=== PATIENT | male | born 1955 | race Caucasian/White ===

== ENCOUNTER → 2023-10-02 | Outpatient (CLI) | payer MEDICARE, OTHER ==
[~2023-10-02] MED LIST: ALLO300 PO; ATEN25 PO; B-12250 MCG; CHOL10002 PO; CIPR500 PO; DOCU100 PO; Doxazosin Mesyla8 MG PO; FEBU40TA PO; FINA5 PO; FISH1000 PO; GABA300 PO; HYDR1TAB94 PO; LOSARTAN POTAS100 MG PO; PIRO20 PO; TAMS.4ER; VITAMIN B-12
== END | disposition home or self-care (01) ==
LOC: LAB SHORT 14:55 → LAB 14:55
DX: R82.998 Other abnormal findings in urine (principal)
CPT/HCPCS: 87086

== ENCOUNTER 2024-06-17 09:30 | Day surgery (SDC) | payer MEDICARE, OTHER ==
[~2024-06-17] VITALS: Ht 182.9 cm; Wt 110.0 kg
[~2024-06-17 09:30] MED LIST changes: +Lactated Ringer's 1,000 ML IV ONE
[2024-06-17] MEDS ORDERED: AMLO5 (10:01)
[2024-06-17] MEDS ORDERED: Crestor40 MG (10:01)
[2024-06-17] MEDS ORDERED: FARXIGA10 MG (10:01)
[2024-06-17] MEDS ORDERED: propofoL 100 ML IV ONE (10:24)
[2024-06-17] MEDS ORDERED: Lactated Ringer's 1,000 ML IV ONE (10:27)
[2024-06-17] MEDS ORDERED: propofoL 50 ML IV ONE (11:10)
[2024-06-17 12:02] VITALS: BP 106/69
== END 2024-06-17 11:52 | disposition home or self-care (01) ==
LOC: ORSCSDS 09:30
PROVIDERS: Internal Medicine Gastroenterology
PROC: 0DBP8ZX Excision of Rectum, Via Natural or Artificial Opening Endoscopic, Diagnostic (ICD-10-PCS; principal; 2024-06-17 11:45)
PROC: 0DBM8ZX Excision of Descending Colon, Via Natural or Artificial Opening Endoscopic, Diagnostic (ICD-10-PCS; principal; 2024-06-17 11:45)
PROC: 0DBN8ZX Excision of Sigmoid Colon, Via Natural or Artificial Opening Endoscopic, Diagnostic (ICD-10-PCS; principal; 2024-06-17 11:45)
PROC: 0DBK8ZX Excision of Ascending Colon, Via Natural or Artificial Opening Endoscopic, Diagnostic (ICD-10-PCS; principal; 2024-06-17 11:45)
PROC: 0DBL8ZX Excision of Transverse Colon, Via Natural or Artificial Opening Endoscopic, Diagnostic (ICD-10-PCS; principal; 2024-06-17 11:45)
DX: Z12.11 Encounter for screening for malignant neoplasm of colon (principal); D12.2 Benign neoplasm of ascending colon; Z86.0101 Personal history of adenomatous and serrated colon polyps; K51.40 Inflammatory polyps of colon without complications; D12.4 Benign neoplasm of descending colon; D12.3 Benign neoplasm of transverse colon; K63.5 Polyp of colon; K62.1 Rectal polyp; D12.5 Benign neoplasm of sigmoid colon; K64.8 Other hemorrhoids; K64.4 Residual hemorrhoidal skin tags; I12.9 Hypertensive chronic kidney disease with stage 1 through stage 4 chronic kidney disease, or unspecified chronic kidney disease; R73.03 Prediabetes; N18.31 Chronic kidney disease, stage 3a; Z79.84 Long term (current) use of oral hypoglycemic drugs; Z79.899 Other long term (current) drug therapy
CPT/HCPCS: 88305; J2704; J7120

== ENCOUNTER 2024-12-10 17:01 | Inpatient (IN) | payer MEDICARE, OTHER ==
[~2024-12-10] VITALS: Ht 182.9 cm; Wt 98.4 kg
[~2024-12-10 17:01] MED LIST changes: -Acetaminophen650 M1 PO; -CIPR250 PO; -Crestor40 MG PO; -LOSA50 PO; -VISBIOME 112.51 EACH PO
[2024-12-10 21:53] LABS: BASOPHILS ABSOLUTE AUTO 0.03 K/mm3 (0.00-0.23); BASOPHILS PERCENT AUTO 0 % (0-2); EOSINOPHILS ABSOLUTE AUTO 0.00 K/mm3 (0.00-0.68); EOSINOPHILS PERCENT AUTO 0 % (0-6); Hematocrit 43.7 % (37.0-53.0); Hemoglobin 14.6 g/dL (13.5-17.5); IMMATURE GRAN ABSOLUTE AUTO 0.26 K/mm3 (0.00-0.10); IMMATURE GRAN PERCENT AUTO 1 % (0-1); LYMPHOCYTES ABSOLUTE AUTO 0.94 K/mm3 (0.84-5.20); LYMPHOCYTES PERCENT AUTO 4 % (21-46); MONOCYTES ABSOLUTE AUTO 2.18 K/mm3 (0.16-1.47); MONOCYTES PERCENT AUTO 9 % (4-13); Mean Corpuscular HGB Conc 33.4 g/dL (31.5-36.5); Mean Corpuscular Volume 92 fL (80-100); NEUTROPHILS ABSOLUTE AUTO 21.60 K/mm3 (1.96-9.15); NEUTROPHILS PERCENT AUTO 86 % (41-73); NRBC ABSOLUTE 0.00 K/mm3 (0.00-0.02); NRBC Auto 0.0 /100 WBC (0.0-0.2); Platelet Count 143 K/mm3 (150-400); RDW Coefficient Variation 13.0 % (11.7-14.2); RDW Standard Deviation 43.3 fL (35.1-46.3)
[2024-12-10 22:02] LABS: Magnesium, Blood 1.9 mg/dL (1.6-2.4); Phosphorus, Blood 3.1 mg/dL (2.5-4.9)
[2024-12-10 22:11] LABS: Prothrombin Time Results 12.3 Sec (9.7-11.5)
[2024-12-11] MEDS ORDERED: Ondansetron HCl 2 MG / ML 2ML Vial IV PRN (00:50)
[2024-12-11] MEDS ORDERED: FLU VACC TS2025(65UP)/MF59C/PF 45 MCG/0.5 ML SYRINGE IM SCH (00:50)
[2024-12-11] MEDS ORDERED: CefTRIAXone Sodium 1,000 MG in NS 100 ML IV SCH ×2 (01:40→01:41)
[2024-12-11] MEDS ORDERED: Crestor40 MG (01:43)
[2024-12-11] MEDS ORDERED: Crestor40 MG PO (01:43)
[2024-12-11 02:33] VITALS: BP 156/87
[2024-12-11] MEDS ORDERED: Lidocaine 2% Jelly Uro-Jet UR ONE (03:15)
--- NOTE | 2024-12-11 05:28 | NUR ---
SHIFT SUMMARY PT WAS ADMITTED FROM ER TO ROOM 331 FOR UTI AND POSSIBLE BLADDER MASS. PT WAS FOUND INCONT OF LOOSE STOOL UPON ARRIVAL TO UNIT. PT WITH URINARY URGENCY AND FREQUENCY- VOIDING VERY SMALL AMOUNTS EVERY 10 MINUTES AND INCONT OF SOME URINE. BLADDER SCAN FOR 290 ML. ORDER ON THE CHART STATED TO STRAIGHT CATH FOR SCAN >400, BUT DR NOTIFIED OF URINARY SYMPTOMS AND ORDER RECEIVED TO PLACE PARTIDA USING URO-JET. 18F COUDE CATH PLACED WITHOUT DIFFICULTY AND IS DRAINING ANGUS URINE. PT ABLE TO REST AFTER PARTIDA PLACED AND HAS BEEN SLEEPING INTERMITTENTLY.
[2024-12-11 06:32] LABS: BASOPHILS ABSOLUTE AUTO 0.03 K/mm3 (0.00-0.23); BASOPHILS PERCENT AUTO 0 % (0-2); EOSINOPHILS ABSOLUTE AUTO 0.01 K/mm3 (0.00-0.68); EOSINOPHILS PERCENT AUTO 0 % (0-6); Hematocrit 39.5 % (37.0-53.0); Hemoglobin 13.7 g/dL (13.5-17.5); IMMATURE GRAN ABSOLUTE AUTO 0.09 K/mm3 (0.00-0.10); IMMATURE GRAN PERCENT AUTO 1 % (0-1); LYMPHOCYTES ABSOLUTE AUTO 1.33 K/mm3 (0.84-5.20); LYMPHOCYTES PERCENT AUTO 7 % (21-46); MONOCYTES ABSOLUTE AUTO 1.50 K/mm3 (0.16-1.47); MONOCYTES PERCENT AUTO 8 % (4-13); Mean Corpuscular HGB Conc 34.7 g/dL (31.5-36.5); Mean Corpuscular Volume 89 fL (80-100); NEUTROPHILS ABSOLUTE AUTO 15.33 K/mm3 (1.96-9.15); NEUTROPHILS PERCENT AUTO 84 % (41-73); NRBC ABSOLUTE 0.00 K/mm3 (0.00-0.02); NRBC Auto 0.0 /100 WBC (0.0-0.2); Platelet Count 124 K/mm3 (150-400); RDW Coefficient Variation 12.8 % (11.7-14.2); RDW Standard Deviation 42.5 fL (35.1-46.3)
[2024-12-11 07:00] LABS: Alanine Aminotransfer (ALT/SGP 29.0 U/L (12-78); Albumin, Blood 2.8 g/dL (3.4-5.0); Albumin/Globulin Ratio 0.8 (0.8-1.8); Anion Gap 8.0 mmol/L (3-11); Aspartate Aminotrans (AST/SGOT 34.0 U/L (12-37); Bilirubin, Total 1.3 mg/dL (0.1-1.0); Blood Urea Nitrogen 24.0 mg/dL (8-24); CO2, Blood 26.0 mmol/L (21-32); Calcium, Blood 8.5 mg/dL (8.5-10.1); Chloride, Blood 106.0 mmol/L (98-108); Creatinine, Blood 1.47 mg/dL (0.60-1.20); Globulin, Blood 3.3 g/dL (2.2-4.0); Glucose, Blood 110.0 mg/dL (70-99); Magnesium, Blood 2.1 mg/dL (1.6-2.4); Potassium, Blood 3.6 mmol/L (3.5-5.5); Sodium, Blood 136.0 mmol/L (136-145); Total Protein, Blood 6.1 g/dL (6.4-8.2)
[2024-12-11 07:37] VITALS: BP 127/74
[2024-12-11] MEDS ORDERED: Lactobacil 2-S.Thermo-Bifido 1 1 Cap PO SCH (09:00)
[2024-12-11 14:44] VITALS: BP 121/69
--- NOTE | 2024-12-11 18:23 | NUR ---
END OF SHIFT. PATIENT RESTING IN BED MOST OF TODAY. SOME ABD PAIN AND DISCOMFORT. PASSED BLOOD CLOT IN CATH, URINE CLEARING UP NOW. FAMILY IN TO VISIT. PATIENT IS A&OX4, HAD SOME N/V AT DINNER TIME, WANTED TO KEEP TRAY, MEDICATED PER EMAR FOR N/V. SBA TO BATHROOM. PLAN FOR OUTPATIENT FOLLOW UP, KEEP CATH X7DAYS. PATIENT HAS HX OF 2 TURPS.
[2024-12-11 19:21] VITALS: BP 118/68
[2024-12-11] MEDS ORDERED: NS 250 ML IV PRN (22:55)
[2024-12-12 04:23] VITALS: BP 134/75
[2024-12-12 05:44] LABS: BASOPHILS ABSOLUTE AUTO 0.04 K/mm3 (0.00-0.23); BASOPHILS PERCENT AUTO 0 % (0-2); EOSINOPHILS ABSOLUTE AUTO 0.04 K/mm3 (0.00-0.68); EOSINOPHILS PERCENT AUTO 0 % (0-6); Hematocrit 40.3 % (37.0-53.0); Hemoglobin 13.4 g/dL (13.5-17.5); IMMATURE GRAN ABSOLUTE AUTO 0.07 K/mm3 (0.00-0.10); IMMATURE GRAN PERCENT AUTO 1 % (0-1); LYMPHOCYTES ABSOLUTE AUTO 1.18 K/mm3 (0.84-5.20); LYMPHOCYTES PERCENT AUTO 9 % (21-46); MONOCYTES ABSOLUTE AUTO 1.17 K/mm3 (0.16-1.47); MONOCYTES PERCENT AUTO 8 % (4-13); Mean Corpuscular HGB Conc 33.3 g/dL (31.5-36.5); Mean Corpuscular Volume 91 fL (80-100); NEUTROPHILS ABSOLUTE AUTO 11.44 K/mm3 (1.96-9.15); NEUTROPHILS PERCENT AUTO 82 % (41-73); NRBC ABSOLUTE 0.00 K/mm3 (0.00-0.02); NRBC Auto 0.0 /100 WBC (0.0-0.2); Platelet Count 121 K/mm3 (150-400); RDW Coefficient Variation 12.7 % (11.7-14.2); RDW Standard Deviation 41.6 fL (35.1-46.3)
[2024-12-12 06:14] LABS: Anion Gap 7.0 mmol/L (3-11); Blood Urea Nitrogen 20.0 mg/dL (8-24); CO2, Blood 28.0 mmol/L (21-32); Calcium, Blood 8.4 mg/dL (8.5-10.1); Chloride, Blood 104.0 mmol/L (98-108); Creatinine, Blood 1.39 mg/dL (0.60-1.20); Glucose, Blood 101.0 mg/dL (70-99); Potassium, Blood 4.6 mmol/L (3.5-5.5); Sodium, Blood 134.0 mmol/L (136-145)
--- NOTE | 2024-12-12 06:24 | NUR ---
SHIFT SUMMARY PT'S PARTIDA DRAINING ANGUS URINE WITH SOME SEDIMENT, NO BLOOD CLOTS NOTED. PT DENIES NAUSEA, BUT STATES NO APPETITE DURING THE NIGHT. PT ONLY TOOK IN A FEW SIPS OF WATER TONIGHT. PT NEEDS ECOURAGEMENT TO TURN AND CHANGE POSITION. PT HAS BEEN WITHDRAWN WITH FLAT AFFECT. LOW GRADE TEMP THROUGH THE NIGHT, 99.3 AND 99.7. IV ANTIBIOTICS GIVEN PER ORDER. PT SLEPT LONG INTERVALS DURING THE NIGHT.
[2024-12-12 07:06] VITALS: BP 139/80
[2024-12-12] MEDS ORDERED: FEBUXOSTAT 80 MG PO SCH (09:00)
[2024-12-12] MEDS ORDERED: Doxazosin Mesylate 8 MG TAB PO SCH (09:00)
[2024-12-12 15:17] VITALS: BP 120/67
--- NOTE | 2024-12-12 17:07 | NUR ---
END OF SHIFT PATIENT HAS BEEN SBA TO BATHROOM AND SAT UP IN THE CHAIR FOR A COUPLE HOURS TODAY. CATH STILL LEAKING A LITTLE INTO ATTENDS, SOME BLOOD CLOTS PRESENT BUT DRAINING WELL. BLADDER SCAN SHOWED 2ML OF URINE IN BLADDER. PATIENT DENIES PAIN OR DISCOMFORT. INCOURAGED FLUID INTAKE, PATIENT VERBALIZED UNDERSTANDING. BM TODAY. NO OTHER CONCERNS
[2024-12-12 19:52] VITALS: BP 133/71
[2024-12-13 04:03] VITALS: BP 144/76
--- NOTE | 2024-12-13 05:39 | NUR ---
SHIFT SUMMARY PT'S PARTIDA CONTINUES TO LEAK ON OCCASION. PT DENIES BLADDER SPASMS OR PAIN. SMALL BLOOD CLOTS NOTED AT START OF SHIFT, BUT CLEARED UP BY MIDNIGHT. ADDITIONAL 10ML STERILE WATER ADDED TO PARTIDA BALLOON TO SEE IF THAT WOULD HELP LEAKING. PT TURNS SELF INDEPENDENTLY IN BED. IV ANTIBIIOTICS CONTINUE PER ORDER. PT SLEPT INTERMITTENTLY DURING THE NIGHT.
[2024-12-13 07:40] VITALS: BP 132/76
[2024-12-13 08:53] LABS: BASOPHILS ABSOLUTE AUTO 0.04 K/mm3 (0.00-0.23); BASOPHILS PERCENT AUTO 1 % (0-2); EOSINOPHILS ABSOLUTE AUTO 0.09 K/mm3 (0.00-0.68); EOSINOPHILS PERCENT AUTO 1 % (0-6); Hematocrit 39.5 % (37.0-53.0); Hemoglobin 13.7 g/dL (13.5-17.5); IMMATURE GRAN ABSOLUTE AUTO 0.05 K/mm3 (0.00-0.10); IMMATURE GRAN PERCENT AUTO 1 % (0-1); LYMPHOCYTES ABSOLUTE AUTO 1.11 K/mm3 (0.84-5.20); LYMPHOCYTES PERCENT AUTO 13 % (21-46); MONOCYTES ABSOLUTE AUTO 1.04 K/mm3 (0.16-1.47); MONOCYTES PERCENT AUTO 12 % (4-13); Mean Corpuscular HGB Conc 34.7 g/dL (31.5-36.5); Mean Corpuscular Volume 87 fL (80-100); NEUTROPHILS ABSOLUTE AUTO 6.17 K/mm3 (1.96-9.15); NEUTROPHILS PERCENT AUTO 73 % (41-73); NRBC ABSOLUTE 0.00 K/mm3 (0.00-0.02); NRBC Auto 0.0 /100 WBC (0.0-0.2); Platelet Count 143 K/mm3 (150-400); RDW Coefficient Variation 12.1 % (11.7-14.2); RDW Standard Deviation 39.1 fL (35.1-46.3)
[2024-12-13 09:27] LABS: Anion Gap 6.0 mmol/L (3-11); Blood Urea Nitrogen 18.0 mg/dL (8-24); CO2, Blood 29.0 mmol/L (21-32); Calcium, Blood 8.5 mg/dL (8.5-10.1); Chloride, Blood 102.0 mmol/L (98-108); Creatinine, Blood 1.36 mg/dL (0.60-1.20); Glucose, Blood 113.0 mg/dL (70-99); Potassium, Blood 3.5 mmol/L (3.5-5.5); Sodium, Blood 133.0 mmol/L (136-145)
[2024-12-13] MEDS ORDERED: Acetaminophen650 M1 PO (12:58)
[2024-12-13] MEDS ORDERED: LOSA50 PO (12:58)
[2024-12-13] MEDS ORDERED: CIPR250 PO (12:59)
[2024-12-13] MEDS ORDERED: VISBIOME 112.51 EACH PO (12:59)
--- NOTE | 2024-12-13 14:38 | NUR ---
PT HAS BEEN DISCHARGED TO HOME, PIV REMOVED INTACT, WENT OVER DISCHARGE INSTRUCTIONS WITH HIM, HE VERBALIZED UNDERSTANDING, NEW MEDS FAXED TO [facility], LEFT WITH ALL BELONGINGS VIA WHEELCHAIR WITH LOWERATOR OPERATOR AND FAMILY IN ATTENDENCE.
== END 2024-12-13 14:38 | disposition home or self-care (01) | DRG 872 ==
LOC: ER 17:01 → MEDS 12-11 00:46
PROVIDERS: Emergency Medicine; Internal Medicine; Student in an Organized Health Care Education/Training Program; ADMIT Student in an Organized Health Care Education/Training Program
PROC: 3E03329 Introduction of Other Anti-infective into Peripheral Vein, Percutaneous Approach (ICD-10-PCS; principal; 2024-12-11)
PROC: 0T9B70Z Drainage of Bladder with Drainage Device, Via Natural or Artificial Opening (ICD-10-PCS; 2024-12-11)
DX: A41.51 Sepsis due to Escherichia coli [E. coli] (principal); N39.0 Urinary tract infection, site not specified; N17.9 Acute kidney failure, unspecified; E87.20 Acidosis, unspecified; R65.20 Severe sepsis without septic shock; N40.1 Benign prostatic hyperplasia with lower urinary tract symptoms; R33.8 Other retention of urine; E78.5 Hyperlipidemia, unspecified; I12.9 Hypertensive chronic kidney disease with stage 1 through stage 4 chronic kidney disease, or unspecified chronic kidney disease; N18.31 Chronic kidney disease, stage 3a; M10.9 Gout, unspecified; E80.6 Other disorders of bilirubin metabolism; R73.9 Hyperglycemia, unspecified; Z96.642 Presence of left artificial hip joint; Z79.899 Other long term (current) drug therapy; Z87.442 Personal history of urinary calculi; Z98.890 Other specified postprocedural states; Z88.2 Allergy status to sulfonamides
CPT/HCPCS: 36415; 51798; 74177; 80048; 80053; 83036; 83605; 83735; 84100; 84484; 85025; 85610; 85730; 86850; 86900; 86901; 87040; 87077; 87086; 87186; 93005; 93010; 96360; 99285-25; A9270; J0696; J2405; J7050; J7120; Q9967

== ENCOUNTER → 2024-12-10 | Outpatient (CLI) | payer MEDICARE, OTHER ==
[~2024-12-10] MED LIST changes: +AMLO5 PO; +Acetaminophen650 M1 PO; +CIPR250 PO; +Crestor40 MG; +Crestor40 MG PO; +FARXIGA10 MG PO; +LOSA50 PO; -Lactated Ringer's 1,000 ML IV ONE; +VISBIOME 112.51 EACH PO
[2024-12-10 15:46] LABS: Hematocrit 44.8 % (37.0-53.0); Hemoglobin 15.3 g/dL (13.5-17.5); Mean Corpuscular HGB Conc 34.2 g/dL (31.5-36.5); Mean Corpuscular Volume 89 fL (80-100); NRBC ABSOLUTE 0.00 K/mm3 (0.00-0.02); NRBC Auto 0.0 /100 WBC (0.0-0.2); Platelet Count 145 K/mm3 (150-400); RDW Coefficient Variation 13.1 % (11.7-14.2); RDW Standard Deviation 42.5 fL (35.1-46.3)
[2024-12-10 16:01] LABS: Alanine Aminotransfer (ALT/SGP 39.0 U/L (12-78); Albumin, Blood 3.6 g/dL (3.4-5.0); Albumin/Globulin Ratio 0.9 (0.8-1.8); Anion Gap 16.0 mmol/L (3-11); Aspartate Aminotrans (AST/SGOT 31.0 U/L (12-37); Bilirubin, Total 2.3 mg/dL (0.1-1.0); Blood Urea Nitrogen 23.0 mg/dL (8-24); CO2, Blood 25.0 mmol/L (21-32); Calcium, Blood 8.9 mg/dL (8.5-10.1); Chloride, Blood 102.0 mmol/L (98-108); Creatinine, Blood 2.06 mg/dL (0.60-1.20); Globulin, Blood 4.0 g/dL (2.2-4.0); Glucose, Blood 161.0 mg/dL (70-99); Potassium, Blood 4.0 mmol/L (3.5-5.5); Sodium, Blood 139.0 mmol/L (136-145); Total Protein, Blood 7.6 g/dL (6.4-8.2)
[2024-12-10 16:12] LABS: BAND PERCENT MAN 18 % (0-8); LYMPHOCYTES PERCENT MAN 1 % (21-46); NEUTROPHILS ABSOLUTE MAN 22.67 K/mm3 (1.96-9.15); SEG NEUTROPHILS PERCENT MAN 73 % (41-73)
[2024-12-10 16:13] LABS: BASOPHILS ABSOLUTE MAN 0.24 K/mm3 (0.00-0.23); BASOPHILS PERCENT MAN 1 % (0-2); MONOCYTES ABSOLUTE MAN 1.74 K/mm3 (0.16-1.47); MONOCYTES PERCENT MAN 7 % (4-13)
[2024-12-10 16:15] LABS: LYMPHOCYTES ABSOLUTE MAN 0.24 K/mm3 (0.84-5.20)
== END | disposition home or self-care (01) ==
LOC: LAB SHORT 15:41 → LAB 15:41
PROVIDERS: Physician Assistant
DX: N39.0 Urinary tract infection, site not specified (principal); R73.9 Hyperglycemia, unspecified
CPT/HCPCS: 80053; 83036; 85025; 87077; 87086; 87186

== ENCOUNTER 2025-01-14 10:32 | Inpatient (IN) | payer MEDICARE, OTHER ==
[~2025-01-14] VITALS: Ht 182.9 cm; Wt 105.7 kg
[~2025-01-14 10:32] MED LIST changes: +Acetaminophen650 M1 PO; -CHOL10002 PO; +CIPR250 PO; +Crestor40 MG PO; +LOSA50 PO; +ROSUVASTATIN CAL5 MG PO; +VISBIOME 112.51 EACH PO; +VITAMIN D5000 UNIT PO
[2025-01-14 11:30] LABS: BASOPHILS ABSOLUTE AUTO 0.04 K/mm3 (0.00-0.23); BASOPHILS PERCENT AUTO 0 % (0-2); EOSINOPHILS ABSOLUTE AUTO 0.09 K/mm3 (0.00-0.68); EOSINOPHILS PERCENT AUTO 1 % (0-6); Hematocrit 37.1 % (37.0-53.0); Hemoglobin 12.4 g/dL (13.5-17.5); IMMATURE GRAN ABSOLUTE AUTO 0.10 K/mm3 (0.00-0.10); IMMATURE GRAN PERCENT AUTO 1 % (0-1); LYMPHOCYTES ABSOLUTE AUTO 0.85 K/mm3 (0.84-5.20); LYMPHOCYTES PERCENT AUTO 7 % (21-46); MONOCYTES ABSOLUTE AUTO 1.27 K/mm3 (0.16-1.47); MONOCYTES PERCENT AUTO 10 % (4-13); Mean Corpuscular HGB Conc 33.4 g/dL (31.5-36.5); Mean Corpuscular Volume 88 fL (80-100); NEUTROPHILS ABSOLUTE AUTO 10.43 K/mm3 (1.96-9.15); NEUTROPHILS PERCENT AUTO 82 % (41-73); NRBC ABSOLUTE 0.00 K/mm3 (0.00-0.02); NRBC Auto 0.0 /100 WBC (0.0-0.2); Platelet Count 290 K/mm3 (150-400); RDW Coefficient Variation 12.6 % (11.7-14.2); RDW Standard Deviation 41.2 fL (35.1-46.3)
[2025-01-14 11:59] LABS: Alanine Aminotransfer (ALT/SGP 52.0 U/L (12-78); Albumin, Blood 2.5 g/dL (3.4-5.0); Albumin/Globulin Ratio 0.5 (0.8-1.8); Anion Gap 8.0 mmol/L (3-11); Aspartate Aminotrans (AST/SGOT 41.0 U/L (12-37); Bilirubin, Total 0.8 mg/dL (0.1-1.0); Blood Urea Nitrogen 25.0 mg/dL (8-24); CO2, Blood 25.0 mmol/L (21-32); Calcium, Blood 8.6 mg/dL (8.5-10.1); Chloride, Blood 103.0 mmol/L (98-108); Creatinine, Blood 2.57 mg/dL (0.60-1.20); Globulin, Blood 5.1 g/dL (2.2-4.0); Glucose, Blood 121.0 mg/dL (70-99); Potassium, Blood 4.0 mmol/L (3.5-5.5); Sodium, Blood 132.0 mmol/L (136-145); Total Protein, Blood 7.6 g/dL (6.4-8.2)
[2025-01-14] MEDS ORDERED: CefTRIAXone Sodium 1,000 MG in NS 100 ML IV ONE (12:55)
[2025-01-14] MEDS ORDERED: NS 1,000 ML IV SCH ×4 (12:55→16:30)
[2025-01-14 13:19] LABS: Source, Urine Foley catheter
[2025-01-14 13:22] LABS: Bilirubin, Urine Neg (Neg); Color, Urine Yellow (P-Yellow); Glucose Qualitative, Urine 4+ (Neg); Ketones, Urine Neg (Neg); Leukocyte Esterase, Urine 3+ (Neg); Protein, Urine 4+ (Neg); Specific Gravity, Urine 1.020 (1.003-1.022); Urobilinogen, Urine NORM (Normal)
[2025-01-14 13:47] LABS: Red Blood Cells, Urine 25-50 /hpf (0-2); White Blood Cells, Urine TNTC /hpf (0-5)
[2025-01-14 13:49] LABS: Yeast/Fungi Urine Many /hpf
[2025-01-14] MEDS ORDERED: FLU VACC TS2025(65UP)/MF59C/PF 45 MCG/0.5 ML SYRINGE IM SCH (15:45)
[2025-01-14] MEDS ORDERED: Ondansetron HCl 2 MG / ML 2ML Vial IV PRN (15:45)
--- NOTE | 2025-01-14 17:20 | NUR ---
PT TRANSFERED TO ROOM 357 FROM ER. PT IS A/OX4. TIM. JAQUAN ESQUIVEL AND DRAINING CLOUDY, ANGUS COLORED URINE TO GRAVITY. NS RUNNING @ 200 ML/HR.
[2025-01-14 17:25] VITALS: BP 153/71
[2025-01-14 19:26] VITALS: BP 137/67
[2025-01-14] MEDS ORDERED: Lactobacil 2-S.Thermo-Bifido 1 1 Cap PO SCH (21:00)
[2025-01-14] MEDS ORDERED: Miconazole Nitrate 2% 85 GM PWD TOP PRN ×2 (21:00→21:15)
[2025-01-14] MEDS ORDERED: Doxazosin Mesylate 8 MG TAB PO SCH (21:00)
[2025-01-14 23:39] VITALS: BP 121/77
[2025-01-15] VITALS (8 sets, daily range): BP systolic 108–139; BP diastolic 66–72
[2025-01-15 04:51] LABS: BASOPHILS ABSOLUTE AUTO 0.04 K/mm3 (0.00-0.23); BASOPHILS PERCENT AUTO 0 % (0-2); EOSINOPHILS ABSOLUTE AUTO 0.19 K/mm3 (0.00-0.68); EOSINOPHILS PERCENT AUTO 2 % (0-6); Hematocrit 34.3 % (37.0-53.0); Hemoglobin 11.3 g/dL (13.5-17.5); IMMATURE GRAN ABSOLUTE AUTO 0.08 K/mm3 (0.00-0.10); IMMATURE GRAN PERCENT AUTO 1 % (0-1); LYMPHOCYTES ABSOLUTE AUTO 0.82 K/mm3 (0.84-5.20); LYMPHOCYTES PERCENT AUTO 8 % (21-46); MONOCYTES ABSOLUTE AUTO 1.13 K/mm3 (0.16-1.47); MONOCYTES PERCENT AUTO 11 % (4-13); Mean Corpuscular HGB Conc 32.9 g/dL (31.5-36.5); Mean Corpuscular Volume 88 fL (80-100); NEUTROPHILS ABSOLUTE AUTO 7.78 K/mm3 (1.96-9.15); NEUTROPHILS PERCENT AUTO 77 % (41-73); NRBC ABSOLUTE 0.00 K/mm3 (0.00-0.02); NRBC Auto 0.0 /100 WBC (0.0-0.2); Platelet Count 255 K/mm3 (150-400); RDW Coefficient Variation 12.8 % (11.7-14.2); RDW Standard Deviation 41.0 fL (35.1-46.3)
[2025-01-15 05:17] LABS: Anion Gap 9.0 mmol/L (3-11); Blood Urea Nitrogen 26.0 mg/dL (8-24); CO2, Blood 21.0 mmol/L (21-32); Calcium, Blood 8.3 mg/dL (8.5-10.1); Chloride, Blood 106.0 mmol/L (98-108); Creatinine, Blood 2.17 mg/dL (0.60-1.20); Glucose, Blood 105.0 mg/dL (70-99); Potassium, Blood 3.9 mmol/L (3.5-5.5); Sodium, Blood 132.0 mmol/L (136-145)
--- NOTE | 2025-01-15 06:19 | NUR ---
NOC SHIFT SUMMARY PT C/O DRY, HACKING COUGH T/O SHIFT. THIS RN CALLED NIGHT HOSPITALIST AND RECEIVED ORDER FOR TESSALON. PT MEDICATED PER EMAR. NS CONT TO INFUSE PER ORDER. NO OTHER ACUTE CHANGES. CALL LIGHT WITHIN REACH AND PT ABLE TO MAKE NEEDS KNOWN.
[2025-01-15] MEDS ORDERED: Enoxaparin 40 MG/0.4 ML SYR SC SCH (09:00)
[2025-01-15] MEDS ORDERED: NS 1,000 ML IV SCH (13:00)
--- NOTE | 2025-01-15 16:46 | NUR ---
CALLED DR BOOTHE- THE PT HAD A TEMP OF 100.0. THIS RBN HAS NOT GIVEN ABX TODAY, REVIEW SHOWS NO ORDER FOR ABX. CALLED DR BOOTHE. SHE IS PLACING AN ORDER FOR IV CEFTRIAXONE NOW.
--- NOTE | 2025-01-15 16:48 | NUR ---
SHIFT SUMMARY- PT ALERT AND ORIENTED 1PA TO THE BATHROOM WHEN NEEDED. HE HAS A PARTIDA CATH IN PLACE. KIDNEY FUNCTION IS DOWN SO IVF WAS CHANGED TO 100ML/HR FOR 2000ML. PT IS GOING TO RECIEVE THE SECOND DOSE OF IV ROCEPHIN TODAY. PT HAS HAD A FEVER 100.0 THIS EVENING HE HAS BEEN DIAPHORETIC OFF AND ON WELL SHAKEY OFF AND ON. THE PT HAD ONE BOUT OF EMESIS A FULL LINNEN CHANGE WORTH (UNMEASURED) SHORTLY AFTER A COUGHING FIT. DR BOOTHE IS AWARE AND CHEST XR WAS COMPLETED TO R/O PNEUMONIA A CAUSE FOR THE COUGH. PT TEMP IS ELEVATED TO 100.0 ON EVENING VITALS. AMLODIPINE DC'D AND FIRST DOSE OIF COREG WILL BE GIVEN THIS EVENING.PT REMAINS ON ROOM AIR AT THIS TIME. WILL PASS ON TO NIGHT RN IN BEDSIDE REPORT. PT IN BED, CALL LIGHT IN REACH NO S&S OF DISTRESS NOTED.
[2025-01-15] MEDS ORDERED: CefTRIAXone Sodium 1,000 MG in NS 100 ML IV SCH (17:00)
[2025-01-16 03:24] VITALS: BP 135/73
[2025-01-16 05:08] LABS: Anion Gap 9.0 mmol/L (3-11); Blood Urea Nitrogen 23.0 mg/dL (8-24); CO2, Blood 20.0 mmol/L (21-32); Calcium, Blood 8.8 mg/dL (8.5-10.1); Chloride, Blood 110.0 mmol/L (98-108); Creatinine, Blood 1.99 mg/dL (0.60-1.20); Glucose, Blood 98.0 mg/dL (70-99); Potassium, Blood 4.7 mmol/L (3.5-5.5); Sodium, Blood 134.0 mmol/L (136-145)
[2025-01-16 05:19] LABS: BASOPHILS ABSOLUTE AUTO 0.04 K/mm3 (0.00-0.23); BASOPHILS PERCENT AUTO 1 % (0-2); EOSINOPHILS ABSOLUTE AUTO 0.18 K/mm3 (0.00-0.68); EOSINOPHILS PERCENT AUTO 2 % (0-6); Hematocrit 37.8 % (37.0-53.0); Hemoglobin 12.5 g/dL (13.5-17.5); IMMATURE GRAN ABSOLUTE AUTO 0.07 K/mm3 (0.00-0.10); IMMATURE GRAN PERCENT AUTO 1 % (0-1); LYMPHOCYTES ABSOLUTE AUTO 0.94 K/mm3 (0.84-5.20); LYMPHOCYTES PERCENT AUTO 11 % (21-46); MONOCYTES ABSOLUTE AUTO 1.08 K/mm3 (0.16-1.47); MONOCYTES PERCENT AUTO 13 % (4-13); Mean Corpuscular HGB Conc 33.1 g/dL (31.5-36.5); Mean Corpuscular Volume 90 fL (80-100); NEUTROPHILS ABSOLUTE AUTO 6.36 K/mm3 (1.96-9.15); NEUTROPHILS PERCENT AUTO 73 % (41-73); NRBC ABSOLUTE 0.02 K/mm3 (0.00-0.02); NRBC Auto 0.2 /100 WBC (0.0-0.2); Platelet Count 248 K/mm3 (150-400); RDW Coefficient Variation 12.9 % (11.7-14.2); RDW Standard Deviation 42.1 fL (35.1-46.3)
[2025-01-16 07:07] VITALS: BP 135/72
[2025-01-16] MEDS ORDERED: Furosemide 10 MG / ML 2ML Vial IV ONE (09:00)
[2025-01-16 13:45] LABS: Anion Gap 4.0 mmol/L (3-11); Blood Urea Nitrogen 25.0 mg/dL (8-24); CO2, Blood 28.0 mmol/L (21-32); Calcium, Blood 8.5 mg/dL (8.5-10.1); Chloride, Blood 105.0 mmol/L (98-108); Creatinine, Blood 2.04 mg/dL (0.60-1.20); Glucose, Blood 116.0 mg/dL (70-99); Potassium, Blood 4.3 mmol/L (3.5-5.5); Sodium, Blood 133.0 mmol/L (136-145)
[2025-01-16 15:13] VITALS: BP 130/76
[2025-01-16 17:16] VITALS: BP 142/83
--- NOTE | 2025-01-16 17:59 | NUR ---
NO ACUTE CHANGES, TO CT NOW, DR GENAO ROUNDED, OXYBUTIN PRN ORDERED, PATIENT REPORTS NO RELIEF FROM OXYBUTIN, NO TEMP THROUGH OUT THE DAY, CALL LIGHT WITH IN REACH
[2025-01-16 20:04] VITALS: BP 132/72
[2025-01-17] VITALS (7 sets, daily range): BP systolic 122–140; BP diastolic 70–81
[2025-01-17 05:21] LABS: BASOPHILS ABSOLUTE AUTO 0.04 K/mm3 (0.00-0.23); BASOPHILS PERCENT AUTO 1 % (0-2); EOSINOPHILS ABSOLUTE AUTO 0.20 K/mm3 (0.00-0.68); EOSINOPHILS PERCENT AUTO 2 % (0-6); Hematocrit 38.6 % (37.0-53.0); Hemoglobin 12.8 g/dL (13.5-17.5); IMMATURE GRAN ABSOLUTE AUTO 0.05 K/mm3 (0.00-0.10); IMMATURE GRAN PERCENT AUTO 1 % (0-1); LYMPHOCYTES ABSOLUTE AUTO 1.24 K/mm3 (0.84-5.20); LYMPHOCYTES PERCENT AUTO 15 % (21-46); MONOCYTES ABSOLUTE AUTO 1.12 K/mm3 (0.16-1.47); MONOCYTES PERCENT AUTO 13 % (4-13); Mean Corpuscular HGB Conc 33.2 g/dL (31.5-36.5); Mean Corpuscular Volume 89 fL (80-100); NEUTROPHILS ABSOLUTE AUTO 5.93 K/mm3 (1.96-9.15); NEUTROPHILS PERCENT AUTO 69 % (41-73); NRBC ABSOLUTE 0.00 K/mm3 (0.00-0.02); NRBC Auto 0.0 /100 WBC (0.0-0.2); Platelet Count 277 K/mm3 (150-400); RDW Coefficient Variation 12.7 % (11.7-14.2); RDW Standard Deviation 41.4 fL (35.1-46.3)
[2025-01-17 05:46] LABS: Alanine Aminotransfer (ALT/SGP 44.0 U/L (12-78); Albumin, Blood 2.4 g/dL (3.4-5.0); Albumin/Globulin Ratio 0.5 (0.8-1.8); Anion Gap 9.0 mmol/L (3-11); Aspartate Aminotrans (AST/SGOT 31.0 U/L (12-37); Bilirubin, Total 0.5 mg/dL (0.1-1.0); Blood Urea Nitrogen 25.0 mg/dL (8-24); CO2, Blood 24.0 mmol/L (21-32); Calcium, Blood 8.6 mg/dL (8.5-10.1); Chloride, Blood 106.0 mmol/L (98-108); Creatinine, Blood 1.88 mg/dL (0.60-1.20); Globulin, Blood 5.0 g/dL (2.2-4.0); Glucose, Blood 96.0 mg/dL (70-99); Potassium, Blood 4.1 mmol/L (3.5-5.5); Sodium, Blood 135.0 mmol/L (136-145); Total Protein, Blood 7.4 g/dL (6.4-8.2)
[2025-01-17] MEDS ORDERED: LOSARTAN POTAS100 M1 PO (14:22)
--- NOTE | 2025-01-17 19:40 | NUR ---
SHIFT SUMMARY PT A&OX4. PT ADMITTED DUE TO ACUTE RENAL FAILURE. VSS. PT REPORTS NO PAIN/CHEST PAIN/SOB. PT ON TELE, NO TELE REPORTS NOTED. PT INDEPENDENT IN ROOM. PT HAS CHRONIC PARTIDA, PARTIDA DRAINING ADEQUATE WITH NO DEPENDENT LOOPS. PT REPORTS SOME URINE LEAKING AT CATH SITE. PT [place] AREA ESCORIATED. DR. GENAO ROUNDED ON PT THIS AM. PLAN IS SURGERY TOMORROW AFTERNOON, NPO AT MIDNIGHT. PT IN BED, BED IN LOWEST POSITION, LOCKED, CALL LIGHT IN REACH.
[2025-01-18] VITALS (16 sets, daily range): BP systolic 126–159; BP diastolic 74–92
--- NOTE | 2025-01-18 06:15 | NUR ---
Shift Summary No acute changes. Pt has Brown catheter, some leaking per report. No significant leaking noted this shift. Pt on tele, no events. He slept well t/o most of the night. No c/o of pain or nausea.
[2025-01-18 09:33] LABS: BASOPHILS ABSOLUTE AUTO 0.03 K/mm3 (0.00-0.23); BASOPHILS PERCENT AUTO 0 % (0-2); EOSINOPHILS ABSOLUTE AUTO 0.18 K/mm3 (0.00-0.68); EOSINOPHILS PERCENT AUTO 3 % (0-6); Hematocrit 37.9 % (37.0-53.0); Hemoglobin 12.5 g/dL (13.5-17.5); IMMATURE GRAN ABSOLUTE AUTO 0.03 K/mm3 (0.00-0.10); IMMATURE GRAN PERCENT AUTO 0 % (0-1); LYMPHOCYTES ABSOLUTE AUTO 1.23 K/mm3 (0.84-5.20); LYMPHOCYTES PERCENT AUTO 17 % (21-46); MONOCYTES ABSOLUTE AUTO 0.75 K/mm3 (0.16-1.47); MONOCYTES PERCENT AUTO 10 % (4-13); Mean Corpuscular HGB Conc 33.0 g/dL (31.5-36.5); Mean Corpuscular Volume 88 fL (80-100); NEUTROPHILS ABSOLUTE AUTO 4.98 K/mm3 (1.96-9.15); NEUTROPHILS PERCENT AUTO 69 % (41-73); NRBC ABSOLUTE 0.00 K/mm3 (0.00-0.02); NRBC Auto 0.0 /100 WBC (0.0-0.2); Platelet Count 273 K/mm3 (150-400); RDW Coefficient Variation 12.7 % (11.7-14.2); RDW Standard Deviation 41.0 fL (35.1-46.3)
[2025-01-18 10:06] LABS: Anion Gap 8.0 mmol/L (3-11); Blood Urea Nitrogen 28.0 mg/dL (8-24); CO2, Blood 25.0 mmol/L (21-32); Calcium, Blood 8.9 mg/dL (8.5-10.1); Chloride, Blood 105.0 mmol/L (98-108); Creatinine, Blood 1.84 mg/dL (0.60-1.20); Glucose, Blood 96.0 mg/dL (70-99); Potassium, Blood 4.5 mmol/L (3.5-5.5); Sodium, Blood 133.0 mmol/L (136-145)
[2025-01-18] MEDS ORDERED: FentaNYL Citrate 50 MCG/ML 2 ML Injection ONE (15:36)
[2025-01-18] MEDS ORDERED: Ondansetron HCl 2 MG / ML 2ML Vial ONE (15:36)
[2025-01-18] MEDS ORDERED: Dexamethasone Sod Phos 10 MG/ML 1ML VIAL ONE (15:36)
[2025-01-18] MEDS ORDERED: CeFAZolin Sodium 2,000 MG in NS 100 ML IV SCH (15:50)
--- NOTE | 2025-01-18 15:50 | NUR ---
History, Chart, Medications and Allergies reviewed before start of procedure. Lungs clear T/O to Auscultation. Patient confirms NPO status and agrees with scheduled surgery. Pre-Op teaching done. Pt verbalizes understanding.
[2025-01-18] MEDS ORDERED: Rocuronium Bromide 10 MG/ML 5ML Injection IV ONE (15:59)
[2025-01-18] MEDS ORDERED: Phenylephrine HCl 100 MCG/ML-NS 10MLSYR (1MG/10ML) ONE (15:59)
[2025-01-18] MEDS ORDERED: HYDROmorphone HCl/Pf 1MG SYR IV PRN ×2 (17:05)
[2025-01-18] MEDS ORDERED: HydrALAZINE HCl 20 MG / ML 1ML Vial IV PRN (17:05)
[2025-01-18] MEDS ORDERED: FentaNYL Citrate 50 MCG/ML 2 ML Injection IV PRN ×2 (17:05→17:10)
[2025-01-18] MEDS ORDERED: Metoclopramide HCl 5MG / ML 2ML Vial IV PRN (17:05)
[2025-01-18] MEDS ORDERED: ePHEDrine Sulfate 50 MG/ML 1ML Injection IV PRN (17:10)
--- NOTE | 2025-01-18 18:48 | NUR ---
SHIFT SUMMARY PT A&OX4, VSS, RA, SR 60-70S ON TELE, DENIES PAIN. NPO THIS MORNING FOR UROSCOPY WITH LASER AND STENT PLACEMENT THIS AFTERNOON. PT RETURNED TO UNIT AT 1800, 3L O2 TO WEAN TO RA TOLERATED. NEW PARTIDA PLACED DURING PROCEDURE NOW DRAINING RED URINE WITH SEDIMENT AND CLOTS, ORDER TO FLUSH PRN WITH 30ML SALINE PRN WITH SIGNS OF OBSTRUCTION. PT PLEASANT AND COOPERATIVE WITH CARE, CALL LIGHT IN REACH.
--- NOTE | 2025-01-18 22:18 | NUR ---
BLADDER SCAN DONE @ 2130. ON 1O ML URINE DETECTED SO PARTIDA IS DRAINING WELL. URINE IS STILL RED.
[2025-01-19 03:29] VITALS: BP 149/84
[2025-01-19 05:03] LABS: BASOPHILS ABSOLUTE AUTO 0.02 K/mm3 (0.00-0.23); BASOPHILS PERCENT AUTO 0 % (0-2); EOSINOPHILS ABSOLUTE AUTO 0.01 K/mm3 (0.00-0.68); EOSINOPHILS PERCENT AUTO 0 % (0-6); Hematocrit 39.6 % (37.0-53.0); Hemoglobin 13.4 g/dL (13.5-17.5); IMMATURE GRAN ABSOLUTE AUTO 0.07 K/mm3 (0.00-0.10); IMMATURE GRAN PERCENT AUTO 0 % (0-1); LYMPHOCYTES ABSOLUTE AUTO 0.79 K/mm3 (0.84-5.20); LYMPHOCYTES PERCENT AUTO 5 % (21-46); MONOCYTES ABSOLUTE AUTO 0.67 K/mm3 (0.16-1.47); MONOCYTES PERCENT AUTO 4 % (4-13); Mean Corpuscular HGB Conc 33.8 g/dL (31.5-36.5); Mean Corpuscular Volume 87 fL (80-100); NEUTROPHILS ABSOLUTE AUTO 15.09 K/mm3 (1.96-9.15); NEUTROPHILS PERCENT AUTO 91 % (41-73); NRBC ABSOLUTE 0.00 K/mm3 (0.00-0.02); NRBC Auto 0.0 /100 WBC (0.0-0.2); Platelet Count 303 K/mm3 (150-400); RDW Coefficient Variation 12.5 % (11.7-14.2); RDW Standard Deviation 40.0 fL (35.1-46.3)
[2025-01-19 05:45] LABS: Anion Gap 10.0 mmol/L (3-11); Blood Urea Nitrogen 31.0 mg/dL (8-24); CO2, Blood 23.0 mmol/L (21-32); Calcium, Blood 8.7 mg/dL (8.5-10.1); Chloride, Blood 104.0 mmol/L (98-108); Creatinine, Blood 1.75 mg/dL (0.60-1.20); Glucose, Blood 152.0 mg/dL (70-99); Potassium, Blood 4.8 mmol/L (3.5-5.5); Sodium, Blood 132.0 mmol/L (136-145)
--- NOTE | 2025-01-19 06:15 | NUR ---
SHIFT SUMMARY 69 YR M ADMITTED ON 01/15/25. FULL CODE. NO ACUTE CHANGES THIS SHIFT. PARTIDA WAS FLUSHED DURING SHIFT CHANGE ON 01/18/25, DUE TO LOW URINARY OUTPUT. A SMALL CLOT AND SOME SEDIMENT WERE NOTED AND PARTIDA HAS DRAINED WELL FOR THE REST OF THIS SHIFT. BLADDER SCAN WAS DONE AT APPROX 2130 REVEALING 10 ML IN THE BLADDER. PT HAD A TOTAL OF 1000 ML OUTPUT OVERNIGHT. URINE IS RED W/ SOME SEDIMENT. PT HAS HAD NO C/O PAIN OR DISCOMFORT. HE APPEARS TO HAVE RESTED COMFORTABLY THROUGHOUT THE NIGHT. PER VERTICAL CONTOUR BAND SAW OPERATOR, PT HAD 2 EPISODES OF VTAC DURING THE NIGHT. ONE WAS 11 BEATS AND THE OTHER WAS 16 BEATS. PT HAS REMAINED ASYMPTOMATIC. PT IS A&O X 4 W/ FLAT EFFECT. HE IS ABLE TO MAKE HIS NEEDS KNOWN APPROPRIATELY. BED IS IN LOW POSITION AND CALL LIGHT IN REACH.
[2025-01-19 07:52] VITALS: BP 140/81
[2025-01-19] MEDS ORDERED: C COMPLEX1000 M1 PO (09:24)
[2025-01-19] MEDS ORDERED: VITAMIN B122500 MC1 PO (09:24)
[2025-01-19] MEDS ORDERED: FARYDAK10 MG PO (09:25)
[2025-01-19] MEDS ORDERED: OXYB5 PO (09:27)
[2025-01-19] MEDS ORDERED: Tessalon200 MG PO (10:46)
[2025-01-19] MEDS ORDERED: Acetaminophen650 M1 PO (10:46)
[2025-01-19] MEDS ORDERED: CARV6.25 PO (10:47)
[2025-01-19] MEDS ORDERED: CIPR250 PO (10:47)
[2025-01-19] MEDS ORDERED: Diflucan100 MG PO (10:48)
[2025-01-19] MEDS ORDERED: VISBIOME 112.51 EACH PO (10:49)
--- NOTE | 2025-01-19 11:09 | NUR ---
DISCHARGE NOTE PT PROVIDED WITH 2 LEG BAGS AND STRAPS FOR GOING HOME. PROVIDED A NEW LARGE NIGHT BAG. CARE ONGOING.
[2025-01-19 11:33] VITALS: BP 123/69
--- NOTE | 2025-01-19 14:12 | NUR ---
DISCHARGE HOME EDUCATED PT/ ABOUT ENCOURAGING LIQUIDS. IV REMOVED PRESSURE DRESSING APPLIED. PT ESCORTED OUT VIA W/C TO AWAITING CAR. CARE ONGOING.
== END 2025-01-19 14:24 | disposition home or self-care (01) | DRG 854 ==
LOC: ER 10:32 → MEDS 10:33
PROVIDERS: Student in an Organized Health Care Education/Training Program; Urology; ADMIT Internal Medicine
PROC: 0T2BX0Z Change Drainage Device in Bladder, External Approach (ICD-10-PCS; 2025-01-14)
PROC: 0TC68ZZ Extirpation of Matter from Right Ureter, Via Natural or Artificial Opening Endoscopic (ICD-10-PCS; 2025-01-18)
PROC: BT1D1ZZ Fluoroscopy of Right Kidney, Ureter and Bladder using Low Osmolar Contrast (ICD-10-PCS; 2025-01-18)
PROC: 0T768DZ Dilation of Right Ureter with Intraluminal Device, Via Natural or Artificial Opening Endoscopic (ICD-10-PCS; principal; 2025-01-18 15:30)
DX: A41.9 Sepsis, unspecified organism (principal); B37.49 Other urogenital candidiasis; N17.9 Acute kidney failure, unspecified; N13.8 Other obstructive and reflux uropathy; N13.6 Pyonephrosis; M10.9 Gout, unspecified; R65.20 Severe sepsis without septic shock; R33.8 Other retention of urine; R05.9 Cough, unspecified; Z96.0 Presence of urogenital implants; Z96.643 Presence of artificial hip joint, bilateral; N40.0 Benign prostatic hyperplasia without lower urinary tract symptoms; N18.31 Chronic kidney disease, stage 3a; I12.9 Hypertensive chronic kidney disease with stage 1 through stage 4 chronic kidney disease, or unspecified chronic kidney disease; N40.1 Benign prostatic hyperplasia with lower urinary tract symptoms; R73.03 Prediabetes; E78.5 Hyperlipidemia, unspecified; Z90.89 Acquired absence of other organs; Z87.442 Personal history of urinary calculi; Z88.2 Allergy status to sulfonamides; Z79.899 Other long term (current) drug therapy; Z79.2 Long term (current) use of antibiotics; Z87.19 Personal history of other diseases of the digestive system; Z98.52 Vasectomy status; Z85.51 Personal history of malignant neoplasm of bladder
CPT/HCPCS: 36415; 51702; 71046; 74176; 76770; 80048; 80053; 81001; 83605; 85025; 87040; 87086; 93005; 93010; 96361; 96365; 96372; 96375; 99285-25; A9270; C1758; C1769; C2617; G0378; J0690; J0696; J1100; J1650; J1938; J2371; J2405; J2704; J3010; J7030; J7120

== ENCOUNTER 2025-01-26 06:11 | Day surgery (SDC) | payer MEDICARE, OTHER ==
[2025-01-26] VITALS (14 sets, daily range): BP systolic 112–145; BP diastolic 61–89
[~2025-01-26] VITALS: Ht 182.9 cm; Wt 100.4 kg
[~2025-01-26 06:11] MED LIST changes: +C COMPLEX1000 M1 PO; +CARV6.25 PO; +Diflucan100 MG PO; +FARYDAK10 MG PO; +LOSARTAN POTAS100 M1 PO; +OXYB5 PO; +Tessalon200 MG PO; +VITAMIN B122500 MC1 PO
[2025-01-26] MEDS ORDERED: CefTRIAXone Sodium 2,000 MG in NS 100 ML IV SCH (06:30)
--- NOTE | 2025-01-26 07:06 | NUR ---
Ambulatory in Day Surgery WITH STEADY GAIT. PT HAS CATHETER IN PLACE. SPOUSE AT BEDSIDE DURING PRE OP ADMISSION. WARM BLANKET PROVIDED. VSS. BELONGINGS PLACED UNDER GURN. GLASSES REMAIN IN PLACE IN PRE OP. TO BE PLACED IN PACU WHEN GOING BACK FOR SURGERY. Pre-Op teaching done. Pt verbalizes understanding. Patient States Post-Procedure ride home has been arranged WITH SPOUSE.
[2025-01-26] MEDS ORDERED: Midazolam HCl 1MG / ML 2ML Vial ONE (07:29)
[2025-01-26] MEDS ORDERED: ePHEDrine Sulfate 50 MG/ML 1ML Injection ONE (07:45)
[2025-01-26] MEDS ORDERED: Albuterol 2.5 MG/3 ML VIAL INH PRN (08:15)
[2025-01-26] MEDS ORDERED: FentaNYL Citrate 50 MCG/ML 2 ML Injection IV PRN ×2 (08:20)
[2025-01-26] MEDS ORDERED: HYDROmorphone HCl/Pf 1MG SYR IV PRN ×2 (08:20)
[2025-01-26] MEDS ORDERED: ePHEDrine Sulfate 50 MG/ML 1ML Injection IV PRN (08:20)
[2025-01-26] MEDS ORDERED: Ondansetron HCl 2 MG / ML 2ML Vial IV PRN (08:20)
[2025-01-26] MEDS ORDERED: FentaNYL Citrate 50 MCG/ML 2 ML Injection ONE (09:26)
[2025-01-26] MEDS ORDERED: NS 1,000 ML IV SCH (10:50)
[2025-01-26] MEDS ORDERED: FLU VACC TS2025-26(6MOS UP)/PF 45 MCG/0.5 ML SYRINGE IM SCH (10:50)
[2025-01-26] MEDS ORDERED: HYDROcodone 5-APAP 325 TAB PO PRN (10:50)
--- NOTE | 2025-01-26 11:05 | NUR ---
ARRIVAL S/P TURP. CBI IN PLACE AND URINE IS LIGHT PINK IN COLOR WITH NO BLOOD CLOTS NOTED. PT DENIES PAIN. DENIES N/V. PT HAS DECREASED SENSATION R/T SPINAL. POST OP VSS AND IN PROGRESS. PT REPORTS A SCRATCHY THROAT AND COUGH R/T PREVIOUS RECENT SURGERY. ORIENTED TO ROOM, CALL LIGHT, AND TREATMENT PLAN. CALL LIGHT WITHIN REACH.
--- NOTE | 2025-01-26 11:29 | NUR ---
KATHY NASSAR TO ASSUME CARE OF PT AT THIS TIME
--- NOTE | 2025-01-26 18:01 | NUR ---
SHIFT SUMMARY S/P TURP. CBI IN PROGRESS--CRANBERRY COLORED URINE WITH NO BLOOD CLOTS. A&O x4, VSS. TOLERATING FOOD & FLUIDS WELL. DENIES PAIN. SBA TO BRP TO HAVE A BM. USES CALL LIGHT APPROPRIATELY.
[2025-01-27 03:59] VITALS: BP 116/70
[2025-01-27 04:20] LABS: Hematocrit 33.8 % (37.0-53.0); Hemoglobin 11.3 g/dL (13.5-17.5); Mean Corpuscular HGB Conc 33.4 g/dL (31.5-36.5); Mean Corpuscular Volume 88 fL (80-100); NRBC ABSOLUTE 0.00 K/mm3 (0.00-0.02); NRBC Auto 0.0 /100 WBC (0.0-0.2); Platelet Count 251 K/mm3 (150-400); RDW Coefficient Variation 13.0 % (11.7-14.2); RDW Standard Deviation 41.1 fL (35.1-46.3)
[2025-01-27 04:44] LABS: Anion Gap 10.0 mmol/L (3-11); Blood Urea Nitrogen 26.0 mg/dL (8-24); CO2, Blood 23.0 mmol/L (21-32); Calcium, Blood 8.5 mg/dL (8.5-10.1); Chloride, Blood 107.0 mmol/L (98-108); Creatinine, Blood 1.9 mg/dL (0.60-1.20); Glucose, Blood 116.0 mg/dL (70-99); Potassium, Blood 4.1 mmol/L (3.5-5.5); Sodium, Blood 136.0 mmol/L (136-145)
--- NOTE | 2025-01-27 06:20 | NUR ---
NOC SUMMARY- PT HAS HAD CBI THROUGHOUT SHIFT. PT DENIES PAIN OR DISCOMFORT. PT PARTIDA DOES LEAK SOME AROUND INSERTION SITE. PT TOLERATING PO INTAKE. FOR NOC SHIFT PT HAD 4950 NS IRRIGATED, TOTAL OUTPUT OF 6300, WITH URINE TOTALING 1350. URINE IS PINK TINGED WITH LARGE CLOTS NOTED AT TIMES. NO BLEEDING OR ABNORMAL SWELLING NOTED. CALL LIGHT IN REACH.
[2025-01-27 07:12] VITALS: BP 117/69
[2025-01-27] MEDS ORDERED: CefTRIAXone Sodium 1,000 MG in NS 100 ML IV SCH (09:00)
[2025-01-27 10:55] VITALS: BP 114/68
[2025-01-27] MEDS ORDERED: DOCU100 PO (12:45)
[2025-01-27] MEDS ORDERED: Sanctura20 MG PO (12:49)
--- NOTE | 2025-01-27 13:50 | NUR ---
SUMMARY ASSUMED CARE OF PT @0700. VSS. AXO4. CBI IN PLACE UPON ASSUMPTION OF CARE. MEDIUM RED OUTPUT, NO CLOTS NOTED IN TUBING. DR WHITNEY TO ROOM @0730 - ASSESSED CATHETER - STATES TO CLAMP OFF AND DC CBI AND MONITOR. ASKED FOR PT TO AMBULATE - GAVE INSTRUCTIONS TO RESTART IF NEEDED. REVISITED PT AFTER LUNCH, ASSESSED ALL DRAINAGE PRESENT IN BAG/TUBING- DEEMED OK TO DC. PROVIDER PLACED DC INSTRUCTIONS. CATH CARE COMPLETED - INSTRUCTIONS PROVIDED. DC INSTRUCTIONS TO BE COMPLETED WITH SPOUSE IN ROOM - AWAITING HER ARRIVAL. PT DENYING PAIN. POST CBI CESSATION - DRAINAGE STILL MEDIUM RED - NO CLOTES NOTED. IV PULLED OUT. VSS. HAS AMBULATED OUTSIDE OF ROOM. HAS TOLERATED PO INTAKE WELL.
--- NOTE | 2025-01-27 15:55 | NUR ---
dc instructions provided. catheter care wipes provided- instructed on catheter cleaning and uti prevention. dc instructions provided to patient w/ spouse in room. leg bag provided. referrals called in. iv pulled. pt out of room @5717 - dc'd.
== END 2025-01-27 14:50 | disposition home or self-care (01) ==
LOC: ORSCMMR 06:11 → ORD 07:30 → SURS 10:32 → ORSCMMR 01-27 14:50
PROVIDERS: Urology
PROC: 0VT08ZZ Resection of Prostate, Via Natural or Artificial Opening Endoscopic (ICD-10-PCS; principal; 2025-01-26 07:30)
PROC: 0TP98DZ Removal of Intraluminal Device from Ureter, Via Natural or Artificial Opening Endoscopic (ICD-10-PCS; principal; 2025-01-26 07:30)
DX: N40.1 Benign prostatic hyperplasia with lower urinary tract symptoms (principal); R33.8 Other retention of urine; Z90.79 Acquired absence of other genital organ(s); R31.0 Gross hematuria; I10 Essential (primary) hypertension; K21.9 Gastro-esophageal reflux disease without esophagitis; E66.9 Obesity, unspecified; Z68.30 Body mass index [BMI] 30.0-30.9, adult; Z79.899 Other long term (current) drug therapy
CPT/HCPCS: 36415; 51700; 80048; 85027; 88305; A4346; A9270; J0696; J2250; J2704; J3010; J7120

== ENCOUNTER 2025-01-31 09:28 | Inpatient (IN) | payer MEDICARE, OTHER ==
[~2025-01-31] VITALS: Ht 182.9 cm; Wt 99.0 kg
[~2025-01-31 09:28] MED LIST changes: +Sanctura20 MG PO
[2025-01-31 10:30] LABS: BASOPHILS ABSOLUTE AUTO 0.02 K/mm3 (0.00-0.23); BASOPHILS PERCENT AUTO 0 % (0-2); EOSINOPHILS ABSOLUTE AUTO 0.52 K/mm3 (0.00-0.68); EOSINOPHILS PERCENT AUTO 5 % (0-6); Hematocrit 36.1 % (37.0-53.0); Hemoglobin 11.7 g/dL (13.5-17.5); IMMATURE GRAN ABSOLUTE AUTO 0.05 K/mm3 (0.00-0.10); IMMATURE GRAN PERCENT AUTO 1 % (0-1); LYMPHOCYTES ABSOLUTE AUTO 1.07 K/mm3 (0.84-5.20); LYMPHOCYTES PERCENT AUTO 11 % (21-46); MONOCYTES ABSOLUTE AUTO 0.73 K/mm3 (0.16-1.47); MONOCYTES PERCENT AUTO 8 % (4-13); Mean Corpuscular HGB Conc 32.4 g/dL (31.5-36.5); Mean Corpuscular Volume 88 fL (80-100); NEUTROPHILS ABSOLUTE AUTO 7.29 K/mm3 (1.96-9.15); NEUTROPHILS PERCENT AUTO 75 % (41-73); NRBC ABSOLUTE 0.00 K/mm3 (0.00-0.02); NRBC Auto 0.0 /100 WBC (0.0-0.2); Platelet Count 296 K/mm3 (150-400); RDW Coefficient Variation 13.1 % (11.7-14.2); RDW Standard Deviation 41.8 fL (35.1-46.3)
[2025-01-31] MEDS ORDERED: NS 1,000 ML IV SCH ×2 (10:35→15:10)
[2025-01-31 10:51] LABS: Alanine Aminotransfer (ALT/SGP 510.0 U/L (12-78); Albumin, Blood 2.6 g/dL (3.4-5.0); Albumin/Globulin Ratio 0.5 (0.8-1.8); Anion Gap 9.0 mmol/L (3-11); Aspartate Aminotrans (AST/SGOT 596.0 U/L (12-37); Bilirubin, Total 3.3 mg/dL (0.1-1.0); Blood Urea Nitrogen 28.0 mg/dL (8-24); CO2, Blood 25.0 mmol/L (21-32); Calcium, Blood 9.1 mg/dL (8.5-10.1); Chloride, Blood 105.0 mmol/L (98-108); Creatinine, Blood 2.18 mg/dL (0.60-1.20); Globulin, Blood 5.2 g/dL (2.2-4.0); Glucose, Blood 159.0 mg/dL (70-99); Potassium, Blood 4.0 mmol/L (3.5-5.5); Sodium, Blood 135.0 mmol/L (136-145); Total Protein, Blood 7.8 g/dL (6.4-8.2)
[2025-01-31] MEDS ORDERED: Piperacillin/Tazobactam Sod 3.375 GM in NS 100 ML IV ONE (12:35)
[2025-01-31] MEDS ORDERED: FLU VACC TS2025(65UP)/MF59C/PF 45 MCG/0.5 ML SYRINGE IM SCH (15:10)
[2025-01-31] MEDS ORDERED: LOSARTAN POTASSIUM (15:20)
[2025-01-31] MEDS ORDERED: LOSA50 PO (15:23)
[2025-01-31] MEDS ORDERED: AMLODIPINE BESYL5 MG PO (15:24)
[2025-01-31 15:43] LABS: Prothrombin Time Results 11.0 Sec (9.7-11.5)
[2025-01-31] MEDS ORDERED: Uloric80 MG PO (17:04)
[2025-01-31 17:10] VITALS: BP 149/77
[2025-01-31 17:13] LABS: Hematocrit 34.7 % (37.0-53.0); Hemoglobin 11.3 g/dL (13.5-17.5)
[2025-01-31 17:52] LABS: Source, Urine Clean Catch
[2025-01-31 17:55] LABS: Bilirubin, Urine Neg (Neg); Glucose Qualitative, Urine Neg (Neg); Ketones, Urine Neg (Neg); Leukocyte Esterase, Urine Neg (Neg); Protein, Urine Neg (Neg); Specific Gravity, Urine 1.005 (1.003-1.022); Urobilinogen, Urine NORM (Normal)
[2025-01-31 18:06] LABS: Color, Urine Pale Yellow (P-Yellow)
--- NOTE | 2025-01-31 18:28 | NUR ---
END OF SHIFT PATIENT RESTING IN BED. PATIENT A&O4, ABLE TO MAKE NEEDS KNOWN. TLAAMANNY VISTED PATIENT AND IN ROOM AND DISCUSSED PLAN. DISCUSSED CONSULTS AND PLANS FOR TOMORROW. PLAN FOR NPO AT MIDNIGHT, WITH POSSIBLE SURGERY WITH GIANFRANCO JOHNSON TOMORROW MORNING. WANTS TO BE LET KNOWN A TIME, SOON WE KNOW SO SHE CAN BE PRESENT, NUMBER AND NAME ON THE BOARD. BED IN LOWEST POSITION, CALL LIGHT IN REACH, MED REC DONE, ALLERGIES CONFIRMED, PATIENT DOES NOT WANT ANY MILK, BUT OKAY WITH MILK PRODUCTS, (CHEESE, ECT.) NO OTHER CONCERNS FOR THIS SHIFT.
[2025-01-31] MEDS ORDERED: FentaNYL Citrate 50 MCG/ML 2 ML Injection IV PRN (18:45)
[2025-01-31 19:26] VITALS: BP 132/72
[2025-01-31] MEDS ORDERED: Doxazosin Mesylate 8 MG TAB PO SCH (21:00)
[2025-01-31] MEDS ORDERED: Lactobacil 2-S.Thermo-Bifido 1 1 Cap PO SCH (21:00)
[2025-01-31] MEDS ORDERED: Piperacillin/Tazobactam Sod 3.375 GM in NS 100 ML IV SCH (22:00)
[2025-01-31 23:24] LABS: Hematocrit 31.4 % (37.0-53.0); Hemoglobin 10.4 g/dL (13.5-17.5)
[2025-02-01 00:06] VITALS: BP 139/75
[2025-02-01 03:46] VITALS: BP 142/79
--- NOTE | 2025-02-01 06:42 | NUR ---
PATIENT RESTED PEACEFULLY OVERNIGHT. NO ACUTE EVENTS, VITALS STABLE. HAS BEEN NPO SINCE [place]
[2025-02-01 06:43] LABS: BASOPHILS ABSOLUTE AUTO 0.02 K/mm3 (0.00-0.23); BASOPHILS PERCENT AUTO 0 % (0-2); EOSINOPHILS ABSOLUTE AUTO 0.61 K/mm3 (0.00-0.68); EOSINOPHILS PERCENT AUTO 8 % (0-6); Hematocrit 32.9 % (37.0-53.0); Hemoglobin 10.6 g/dL (13.5-17.5); IMMATURE GRAN ABSOLUTE AUTO 0.05 K/mm3 (0.00-0.10); IMMATURE GRAN PERCENT AUTO 1 % (0-1); LYMPHOCYTES ABSOLUTE AUTO 1.17 K/mm3 (0.84-5.20); LYMPHOCYTES PERCENT AUTO 15 % (21-46); MONOCYTES ABSOLUTE AUTO 0.64 K/mm3 (0.16-1.47); MONOCYTES PERCENT AUTO 8 % (4-13); Mean Corpuscular HGB Conc 32.2 g/dL (31.5-36.5); Mean Corpuscular Volume 89 fL (80-100); NEUTROPHILS ABSOLUTE AUTO 5.27 K/mm3 (1.96-9.15); NEUTROPHILS PERCENT AUTO 68 % (41-73); NRBC ABSOLUTE 0.00 K/mm3 (0.00-0.02); NRBC Auto 0.0 /100 WBC (0.0-0.2); Platelet Count 251 K/mm3 (150-400); RDW Coefficient Variation 13.2 % (11.7-14.2); RDW Standard Deviation 43.0 fL (35.1-46.3)
[2025-02-01 07:07] LABS: Alanine Aminotransfer (ALT/SGP 370.0 U/L (12-78); Albumin, Blood 2.5 g/dL (3.4-5.0); Albumin/Globulin Ratio 0.6 (0.8-1.8); Anion Gap 6.0 mmol/L (3-11); Aspartate Aminotrans (AST/SGOT 243.0 U/L (12-37); Bilirubin, Direct 0.6 mg/dL (0.0-0.3); Bilirubin, Indirect 0.5 mg/dL (0.1-0.7); Bilirubin, Total 1.1 mg/dL (0.1-1.0); Blood Urea Nitrogen 19.0 mg/dL (8-24); CO2, Blood 26.0 mmol/L (21-32); Calcium, Blood 8.5 mg/dL (8.5-10.1); Chloride, Blood 109.0 mmol/L (98-108); Creatinine, Blood 1.85 mg/dL (0.60-1.20); Globulin, Blood 4.4 g/dL (2.2-4.0); Glucose, Blood 99.0 mg/dL (70-99); Potassium, Blood 3.8 mmol/L (3.5-5.5); Sodium, Blood 137.0 mmol/L (136-145); Total Protein, Blood 6.9 g/dL (6.4-8.2)
[2025-02-01 07:53] VITALS: BP 139/72
[2025-02-01 10:53] VITALS: BP 131/73
[2025-02-01 15:41] VITALS: BP 136/82
--- NOTE | 2025-02-01 18:37 | NUR ---
END OF SHIFT NOTE PATIENT RESTING IN BED. A&O4, ABLE TO MAKE NEEDS KNOWN, CALL LIGHT IN REACH, BED IN LOWEST POSITION. CATH IN PLACE, DRAINING TO GRAVITY. PATIENT HAD BM TODAY, DENIES PAIN. DR LAZARO IN TO TALK WITH PATIENT AND TALK WITH , EXPLAINING SITUATION AND WHY OTHER CONSULTS ARE BEING ORDERED AND HIS CASE IS BEING REVIEWED, WHILE WE WAIT ON SURGERY POSSIBILITIES. DR ROACH ALSO IN TO DISCUSS JOSE CONCERNS AND DISCUSS KIDNEY SITUATION BRIEFLY ALSO. PATIENTS REQUESTED THAT IR DOCTOR CALLS HER BROTHER (WHOM IS A IR IN [facility]), PATIENTS REQUESTING UROLOGIST TO TALK WITH HER BROTHER ALSO TO DISCUSS THIS CASE. SCAN ORDERED FOR MORNING, 0730, PATIENT TO BE NPO AT MIDNIGHT AND NO PAIN MEDICATION 6 HOURS PRIOR TO SCAN ALSO. PATIENT DENIED NEEDS OR QUESTIONS. NO OTHER CONCERNS FOR THIS SHIFT.
[2025-02-01 20:52] VITALS: BP 143/80
[2025-02-02] VITALS (7 sets, daily range): BP systolic 144–161; BP diastolic 73–85
[2025-02-02 05:12] LABS: Hematocrit 32.5 % (37.0-53.0); Hemoglobin 10.5 g/dL (13.5-17.5); Mean Corpuscular HGB Conc 32.3 g/dL (31.5-36.5); Mean Corpuscular Volume 89 fL (80-100); NRBC ABSOLUTE 0.00 K/mm3 (0.00-0.02); NRBC Auto 0.0 /100 WBC (0.0-0.2); Platelet Count 235 K/mm3 (150-400); RDW Coefficient Variation 13.3 % (11.7-14.2); RDW Standard Deviation 43.5 fL (35.1-46.3)
[2025-02-02 05:34] LABS: Alanine Aminotransfer (ALT/SGP 213.0 U/L (12-78); Albumin, Blood 2.3 g/dL (3.4-5.0); Albumin/Globulin Ratio 0.6 (0.8-1.8); Anion Gap 9.0 mmol/L (3-11); Aspartate Aminotrans (AST/SGOT 74.0 U/L (12-37); Bilirubin, Total 0.8 mg/dL (0.1-1.0); Blood Urea Nitrogen 18.0 mg/dL (8-24); CO2, Blood 23.0 mmol/L (21-32); Calcium, Blood 8.3 mg/dL (8.5-10.1); Chloride, Blood 109.0 mmol/L (98-108); Creatinine, Blood 1.68 mg/dL (0.60-1.20); Globulin, Blood 4.1 g/dL (2.2-4.0); Glucose, Blood 95.0 mg/dL (70-99); Potassium, Blood 3.8 mmol/L (3.5-5.5); Sodium, Blood 137.0 mmol/L (136-145); Total Protein, Blood 6.4 g/dL (6.4-8.2)
--- NOTE | 2025-02-02 05:40 | NUR ---
CHILDCARE CENTER DIRECTOR SUMMARY PT A&OX4, VSS. ABLE TO COMMUNICATE NEEDS APPROPRIATELY. PT HAS BEEN ASLEEP FOR MOST OF THE NIGHT. CHEST RISE/RESPIRATIONS NOTED. REMAINS ON TELE. SR AT 75. PARTIDA REMAINS IN PLACE. FREE OF KINKS/OBSTRUCTIONS. DRAINING CLEAR, ANGUS URINE TO GRAVITY. PT HAS BEEN NPO SINCE MIDNIGHT IN PREPARATION FOR HIDA SCAN THIS MORNING. BED RAILS UP X 2, BED IN LOWEST POSITION, BED WHEELS LOCKED, PERSONAL BELONGINGS AND CALL LIGHT WITHIN REACH FOR SAFETY.
[2025-02-02] MEDS ORDERED: VISBIOME 112.51 EACH PO (15:43)
[2025-02-02] MEDS ORDERED: METR500 PO (15:44)
[2025-02-02] MEDS ORDERED: CEFP200 PO (15:44)
[2025-02-02] MEDS ORDERED: NS 1,000 ML IV SCH (18:00)
--- NOTE | 2025-02-02 18:52 | NUR ---
PATIENT NOT DISCHARGING TONIGHT. URINE TURNED DARK THICK RED. CLOT FOUND IN PARTIDA, PARTIDA IS STILL DRAINING. CLOT LATER MOVED DOWN TUBE AND STOPPED DRAINING. WAS ABLE TO WORK IT INTO THE BAG. NOW URINE IS DRAINING AND LIGHT CLEARISH RED.
[2025-02-03 00:35] VITALS: BP 147/76
[2025-02-03 04:15] VITALS: BP 145/77
[2025-02-03] MEDS ORDERED: NS 250 ML IV PRN (05:25)
[2025-02-03 06:07] LABS: Hematocrit 32.5 % (37.0-53.0); Hemoglobin 10.5 g/dL (13.5-17.5); Mean Corpuscular HGB Conc 32.3 g/dL (31.5-36.5); Mean Corpuscular Volume 89 fL (80-100); NRBC ABSOLUTE 0.00 K/mm3 (0.00-0.02); NRBC Auto 0.0 /100 WBC (0.0-0.2); Platelet Count 221 K/mm3 (150-400); RDW Coefficient Variation 13.3 % (11.7-14.2); RDW Standard Deviation 43.7 fL (35.1-46.3)
[2025-02-03 06:27] LABS: Anion Gap 9.0 mmol/L (3-11); Blood Urea Nitrogen 17.0 mg/dL (8-24); CO2, Blood 23.0 mmol/L (21-32); Calcium, Blood 8.4 mg/dL (8.5-10.1); Chloride, Blood 110.0 mmol/L (98-108); Creatinine, Blood 1.72 mg/dL (0.60-1.20); Glucose, Blood 96.0 mg/dL (70-99); Potassium, Blood 3.7 mmol/L (3.5-5.5); Sodium, Blood 138.0 mmol/L (136-145)
--- NOTE | 2025-02-03 06:29 | NUR ---
CARD STRIPPER SUMMARY PT A&OX4, VSS. ABLE TO COMMUNICATE NEEDS APPROPRIATELY. PT HAS BEEN ASLEEP FOR MOST OF THE NIGHT. CHEST RISE/RESPIRATIONS NOTED. REMAINS ON TELE. SR AT 67. PARTIDA REMAINS IN PLACE. DRAINING CLEAR, LIGHT RED URINE TO GRAVITY. PER PROVIDER NOTE, PROVIDER AWARE OF HEMATURIA. PT DID HAVE SEVERAL LARGE CLOTS PASS INTO PARTIDA BAG. CLOTS PREVENTED BAG FROM BEING EMPTIED. BAG CHANGED 1X. REMAINS FREE OF KINKS/OBSTRUCTIONS. BED RAILS UP X 2, BED IN LOWEST POSITION, BED WHEELS LOCKED, PERSONAL BELONGINGS AND CALL LIGHT WITHIN REACH FOR SAFETY.
[2025-02-03 07:30] VITALS: BP 153/75
[2025-02-03 11:48] VITALS: BP 132/74
--- NOTE | 2025-02-03 13:11 | NUR ---
PT REPORTS UROLOGY CAME AND SEEN HIM THIS AM AND INFORMED HIM IT WAS OK TO BE DISCHARGED. NO NOTE FROM UROLOGY IN PT CHART, THIS RN DID NOT SEE UROLOGY ON FLOOR. THIS RN CONTACTED ANSWERING SERVICE TO INQUIRE IF PT WAS SEEN AND IF PT CAN BE DISCHARGED. PER HOSPITALIST IF CONSULT NOTE UPLOADS STATING PT CLEAR TO DC THEN PT CAN BE DISCHARGED WITH DC ORDERS FROM YESTERDAY; OTHERWISE, WAITING FOR UROLOGY TO REACH OUT TO HOSPITALIST TO CLEAR PT FOR DC. PT IS EAGER TO GET HOME IT IS A HOLIDAY AND FAMILY IS WAITING.
--- NOTE | 2025-02-03 15:35 | NUR ---
DISCHARGE PT DISCHARGED HOME c PARTIDA AND INSTRUCTION TO CONTINUE TO FOLLOW UP OUT PT c UROLOGY. DISCHARGE INSTRUCTIONS REVIEWED WITH PT BY BREAK NURSE. IV REMOVED, SITE APPEARS WNL. TELE REMOVED/CLEANED AND SENT BACK TO PCU. PT ABLE TO AMBULATE INDEPENDENTLY TO AND WHEELED DOWN BY RN.
== END 2025-02-03 15:27 | disposition home health service (06) | DRG 683 ==
LOC: ER 09:28 → MEDS 09:29 → ENPENDDIS 02-02 16:35 → MEDS 02-03 15:27
PROVIDERS: Emergency Medicine; ADMIT Internal Medicine
PROC: 3E03329 Introduction of Other Anti-infective into Peripheral Vein, Percutaneous Approach (ICD-10-PCS; 2025-01-31)
PROC: 0T9B70Z Drainage of Bladder with Drainage Device, Via Natural or Artificial Opening (ICD-10-PCS; principal; 2025-02-02)
DX: N17.9 Acute kidney failure, unspecified (principal); E87.1 Hypo-osmolality and hyponatremia; N18.30 Chronic kidney disease, stage 3 unspecified; R31.9 Hematuria, unspecified; E86.1 Hypovolemia; E86.0 Dehydration; N28.89 Other specified disorders of kidney and ureter; N15.1 Renal and perinephric abscess; N40.1 Benign prostatic hyperplasia with lower urinary tract symptoms; I12.9 Hypertensive chronic kidney disease with stage 1 through stage 4 chronic kidney disease, or unspecified chronic kidney disease; M10.9 Gout, unspecified; E78.5 Hyperlipidemia, unspecified; R33.8 Other retention of urine; K80.20 Calculus of gallbladder without cholecystitis without obstruction; I95.9 Hypotension, unspecified; E66.9 Obesity, unspecified; Z96.643 Presence of artificial hip joint, bilateral; Z68.29 Body mass index [BMI] 29.0-29.9, adult; Z87.440 Personal history of urinary (tract) infections; Z88.2 Allergy status to sulfonamides
CPT/HCPCS: 36415; 74177; 76700; 76857; 78226; 80048; 80053; 81003; 82247; 82248; 83605; 83880; 85014; 85018; 85025; 85027; 85610; 85730; 86850; 86900; 86901; 87040; 93005; 93010; 96361; 96365-59; 99285-25; A9270; A9537; G0378; J2543; J7030; J7050; Q9967